=== PATIENT | female | born 1955 | race Caucasian/White ===

== ENCOUNTER 2023-10-25 19:11 | Emergency (ER) | payer MEDICARE, SELFPAY ==
[2023-10-25 19:14] VITALS: BP 154/93
--- NOTE | 2023-10-25 20:14 | ED.MUSCINJ ---
HPI-Injury
General
Chief Complaint: Fall
Source: patient
Exam Limitations: none
Time Seen by Provider: 10/25/23 19:47
Nursing documentation reviewed up to this point in time: agreed with
Travel History
Have you had any contact with someone who has COVID-19?: No
Do you have any symptoms of coronavirus? Fever > 100 degrees, chills, cough, shortness of breath, sore throat, loss of taste or smell, muscle aches, or headache?: No
History of Present Illness-Injury
Is this injury a work related problem?: No
Is pt an associate of [facility]?: No
Initial Injury comments:
Patient states she tripped and fell. Denies hitting her head. Complains of pain to right ant. knee, deformity left middle finger. Injuryoccurred just [employer]NA[employer]
Past History
Past History
ED Past Medical History: CVA, HTN, Hypercholesterolemia, NIDDM and Psychiatric
Review of Systems
Review of Systems
Allergies reviewed?: Yes
All Other Systems: ROS reviewed and negative except as documented in HPI and ROS
Constitutional: Reports no symptoms
Musculoskeletal: Reports joint pain (pain to right knee, deformity to left middle finger)
Skin: Reports other (bruising to right ant. knee)
Neurological: Reports no symptoms
Psychiatric: Reports no symptoms
Musculoskeletal Injury Exam
Musculoskeletal Injury Exam
Left Third Finger:
Pain with Movement?: Moderate
Tender to palpation?: Moderate
Soft tissue swelling?: Mild
External deformity and angulation?: Moderate
Joint effusion?: None
Contusion?: Moderate
Hematoma-local bleeding into tissue?: None
Strain- Sprain- Tear (Connective tissue injury)?: Moderate
Crepitus with movement?: No
Joint instability?: No
Malalignment/deformity?: No
Range of motion: Full
Distal skin color and temperature: normal-warm & good color
Capillary Refill: normal
Normal distal neurovascular exam?: Yes
Peripheral Pulses: radial (left): 3+
Left Anterior Knee:
Pain with Movement?: Moderate
Tender to palpation?: Moderate
Soft tissue swelling?: Mild
External deformity and angulation?: None
Joint effusion?: None
Contusion?: Moderate
Hematoma-local bleeding into tissue?: Moderate
Strain- Sprain- Tear (Connective tissue injury)?: None
Crepitus with movement?: No
Joint instability?: No
Malalignment/deformity?: No
Range of motion: Full
Distal skin color and temperature: normal-warm & good color
Capillary Refill: normal
Normal distal neurovascular exam?: Yes
Peripheral Pulses: posterior tibial (left): 3+ and dorsalis pedis (left): 3+
Phy Exam
General Physical Exam
General Presentation: well appearing and no apparent distress
General age: appears stated age
General Skin: warm and dry
General Habitus: normal
General Mental: alert
Musculoskeletal Exam
Musculoskeletal Exam: neuro vasc intact
Skin Exam
Skin Exam: normal color, warm/dry and no rash
Psychiatric Exam
Psychiatric Exam: normal mood/affect
Injury Course
Orders/Labs/Results
Orders:
Orders
10/25/23 19:15
CR Knee- Right 4 Or More View* Urgent
Comment:
Reason For Exam: pain, trauma
Hand, Left 3 View [CR Hand - Left Min 3 Views] Urgent
Comment:
Reason For Exam: pain, trauma
10/25/23 19:51
Finger(s)/Thumb 2 View Lt [CR Finger(s)/thumb Min 2 Vw Lt] Urgent
Comment:
Reason For Exam: post reduction
Procedures
Joint/Fracture Reduction
Left Third Finger:
Indication for procedure:: dilocation left third finger
Joint reduced: without anesthesia
Injury was: closed
Further treatement: needs further treatment
Post reduction exam: stable
Capillary Refill: normal
Normal distal neurovascular exam?: Yes
*Radiology
Radiology exam reviewed: radiology read reviewed
*Pulse Oximetry
Patient hypoxic: no
*Critical Care Note
Total Time (30-74mins, 75-104mins- exclusive of procedures): Not Applicable
ED Attending Note
-
Portions of this chart may have been created with voice recognition software.� Occasional wrong word or��sound alike� substitutions may have occurred due to the inherent limitations of voice recognition software.
Discharge Plan
Departure
Patient Disposition: Home (Routine Discharge)
Date of Disposition: 10/25/23
Time of Disposition: 20:12
Patient with high blood pressure during this ER visit?: No
Condition: Good
Covid-19: Not Applicable
Discharge Problem:
Dislocated finger, Contusion of knee
Instructions: Head Injury in Adults (DC), Contusion (DC), Using Cold for Pain, Finger Dislocation ED
Prescriptions:
No Action
latanoprost [Xalatan] 0.005 % Drops
1 drp BOTH EYES HS
glipizide [Glucotrol XL] 5 mg Tablet Extended Release 24hr
5 mg PO BID
lorazepam [Ativan] 0.5 mg Tablet
0.5 mg PO BID PRN (Reason: anxiety)
Patient Comments:
02/01/2022: last filled 04/10/21, 180 tabs for 90 days from [facility]
escitalopram oxalate [Lexapro] 10 mg Tablet
10 mg PO DAILY
atorvastatin 80 mg Tablet
80 mg PO DAILY 30 Days Qty: 30 0RF
lisinopril 20 mg Tablet
20 mg PO DAILY 30 Days Qty: 30 0RF
clopidogrel 75 mg Tablet
75 mg PO DAILY 19 Days Qty: 19 0RF
aspirin 81 mg Tablet,Chewable
81 mg PO DAILY 30 Days Qty: 30 0RF
Activity Restrictions/Additional Instructions:
Follow up with your family doctor
Discharge Date and Time
Print Language: PRYDEINIG
== END 2023-10-25 20:36 | disposition home or self-care (01) ==
LOC: EMR 19:11
PROVIDERS: EMERGENCY PHYSICIAN Emergency Medicine; FAMILY PHYSICIAN Nurse Practitioner
DX: S63.253A Unspecified dislocation of left middle finger, initial encounter (principal); S80.02XA Contusion of left knee, initial encounter; S60.032A Contusion of left middle finger without damage to nail, initial encounter; W01.0XXA Fall on same level from slipping, tripping and stumbling without subsequent striking against object, initial encounter; I10 Essential (primary) hypertension; E78.00 Pure hypercholesterolemia, unspecified; E11.9 Type 2 diabetes mellitus without complications; F41.9 Anxiety disorder, unspecified; H40.9 Unspecified glaucoma; Z79.4 Long term (current) use of insulin; Z86.73 Personal history of transient ischemic attack (TIA), and cerebral infarction without residual deficits
CPT/HCPCS: 99284; 26770; 73130; 73140; 73564